=== PATIENT | female | born 1955 | race Caucasian/White ===

== ENCOUNTER 2025-03-26 19:54 | Emergency (ER) | payer MEDICARE ==
[~2025-03-26] VITALS: Ht 149.9 cm; Wt 52.2 kg
--- NOTE | 2025-03-26 20:07 | ERN ---
General Chief Complaint: Abdominal Pain Stated Complaint: ABDOMINAL PAIN Time Seen by MD: 19:56 Source: patient History of Present Illness Initial Comments Patient is a 69-year-old female coming in to be evaluated for epigastric pain. Per patient the pain began earlier today. She also states that she was had this pain in the past. She quantifies the pain at 10/10. Allergies: Coded Allergies: No Known Allergies (Unverified Allergy, Unknown, 03/26/25) Past Medical History Past Medical History: No Pertinent History Past Surgical History: Other Surgical History Other: LOWER BACK SURGERY ROS Dictation CONSTITUTIONAL: No chills, no fever, no weakness, no diaphoresis, no malaise. HEAD/FACE: No signs of trauma. EENT: No eye pain, no blurred vision, no tearing, no double vision, no ear pain, no ear discharge, no nose pain, no nasal congestion, no throat pain, no throat swelling, no mouth pain. RESPIRATORY: No cough, no orthopnea, no SOB, no stridor, no wheezing. CARDIOVASCULAR: No chest pain, no edema, no palpitations, no syncope. GASTROINTESTINAL/ABDOMINAL: abdominal pain, no constipation, no diarrhea, no nausea, no vomiting. GENITOURINARY: No abnormal discharge, no dysuria, no frequent urination, no hematuria. No complaints of pain in the genitals. MUSCULOSKELETAL: No back pain, no gout, no joint pain, no joint swelling, no muscle pain, no muscle stiffness, no neck pain. INTEGUMENTARY: No change in color, no change in hair/nails, no dryness, no lesion, no lumps, no rash. NEUROLOGICAL/PSYCH: No anxiety, not depressed, no emotional problem, no headache, no numbness, no pre-existing deficit, no history of seizures, no tremors, no weakness. HEMATOLOGIC/LYMPHATIC: Not anemic, no history of blood clots, no apparent bleeding, no bruising, glands not swollen. All Systems Negative, Except as Noted. Physical Exam Physical Exam Dictation VITAL SIGNS: Reviewed. GENERAL APPEARANCE: Alert, oriented x3, no acute distress, obese. HEAD AND FACE: Non-traumatic. EYES: PERRL, pink conjunctivas, eyelid no trauma, anterior chamber clear. EARS: Pinnas intact and no signs of trauma or erythema. Ear canals clear and no discharge. TMs no erythema. NOSE: No discharge, no bleeding. OROPHARYNX: Mouth normal, teeth no caries, tongue pink. Pharynx clear, no erythema. Tonsils no exudates, no abscesses noted. Mucous membrane moist. NECK: Supple, non-tender, no thyromegaly, no masses, no JVD, no bruits. BREAST: Deferred. CHEST: No tenderness, no crepitus, no paradoxical movement, no retractions. LUNGS: Clear, well-ventilated, symmetric, no rales, no wheezing, no rhonchi, no stridor, good breath sounds bilaterally. HEART: Regular rate, regular rhythm, no murmur, no gallops. VASCULAR: No peripheral edema. ABDOMEN: Soft, positive bowel sounds, nondistended, no guarding, nontender, no rebound, no masses no hepatomegaly, no splenomegaly, no Mireles's sign, no hernias. RECTAL: Deferred. GENITAL: Deferred. NEUROLOGICAL: Normal speech, gross motor function intact, gross sensory function intact. MUSCULOSKELETAL: Neck nontender, full range of motion, back nontender, full range of motion. EXTREMITIES: Nontender, full range of motion. SKIN: Color pink, dry, no turgor, no rash, no lacerations, no abrasions, no contusions. LYMPHATICS: Deferred. Results Laboratory and Microbiology Lab and Micro Result Laboratory Tests Test 03/26/25 20:12 03/26/25 20:22 White Blood Count 9.5 K/uL (4.8-10.8) Red Blood Count 4.22 MIL/uL (4.00-5.50) Hemoglobin 13.1 g/dL (12.0-16.0) Hematocrit 38.8 % (36-48) Mean Corpuscular Volume 91.9 fL (79-99) Mean Corpuscular Hemoglobin 31.0 pg (27.0-33.0) Mean Corpuscular Hemoglobin Concent 33.8 g/dL (32.0-36.0) Red Cell Distribution Width 13.6 % (11.0-15.5) Platelet Count 194 K/uL (130-400) Mean Platelet Volume 10.4 fL (7.5-10.5) Immature Granulocyte % (Auto) 0.2 % (0-1) Neutrophils (%) (Auto) 80.5 % (40.0-77.0) H Lymphocytes (%) (Auto) 15.2 % (21.0-51.0) L Monocytes (%) (Auto) 3.5 % (3.0-13.0) Eosinophils (%) (Auto) 0.2 % (0.0-8.0) Basophils (%) (Auto) 0.4 % (0.0-5.0) Neutrophils # (Auto) 7.7 K/uL (1.8-7.7) Lymphocytes # (Auto) 1.5 K/uL (1.0-4.8) Monocytes # (Auto) 0.3 K/uL (0.1-1.0) Eosinophils # (Auto) 0.02 K/uL (0.00-0.70) Basophils # (Auto) 0.04 K/uL (0.00-0.20) Absolute Immature Granulocyte (auto 0.02 K/uL (0-1) Nucleated Red Blood Cells 0.0 % (0.0-0.19) Sodium Level 140 mmol/L (136-145) Potassium Level 4.0 mmol/L (3.5-5.1) Chloride Level 102 mmol/L (101-111) Carbon Dioxide Level 26 mmol/L (21-32) Blood Urea Nitrogen 19 mg/dL (7-18) H Creatinine 0.7 mg/dL (0.5-1.0) Glomerular Filtration Rate Calc 92 mL/min (>90) Random Glucose 117 mg/dL (70-105) H Total Calcium 8.8 mg/dL (8.5-10.1) Total Bilirubin 0.4 mg/dL (0.2-1.0) Aspartate Amino Transf (AST/SGOT) 23 U/L (10-37) Alanine Aminotransferase (ALT/SGPT) 28 U/L (12-78) Alkaline Phosphatase 70 U/L (50-136) Total Creatine Kinase 62 U/L (21-232) Troponin I High Sensitivity 6 ng/L (4-50) Total Protein 6.8 g/dL (6.0-8.3) Albumin 3.6 g/dL (3.5-5.0) Lipase 24 U/L (16-77) Urine Color YELLOW (YELLOW) Urine Appearance CLOUDY (CLEAR) H Urine pH 6.0 (5.0-8.0) Urine Specific Dale 1.040 (1.001-1.031) Urine Protein 70 mg/dL (NEGATIVE) H Urine Glucose (UA) NEGATIVE mg/dL (NEGATIVE) Urine Ketones 150 mg/dL (NEGATIVE) H Urine Occult Blood MODERATE (NEGATIVE) H Urine Nitrate NEGATIVE (NEGATIVE) Urine Bilirubin 0.5 mg/dL (NEGATIVE) H Urine Urobilinogen 4.0 mg/dL (0.2-1.0) H Urine Leukocyte Esterase NEGATIVE Latisha/uL Urine RBC 26-50 /HPF (0-1) H Urine WBC 2-5 /HPF (0-1) H Urine Squamous Epithelial Cells FEW /HPF (0-2) Urine Bacteria None /HPF (None Seen) Labs Reviewed?: Yes EKG/XRAY/US/CT/MRI EKG Comment 02/2025 time 8:08 p.m. Ventricular rate [address] wave elevation or depression MDM MDM: Differential diagnosis: Gastritis, GERD, H pylori, NSTEMI, STEMI Rationale: Tests considered and ordered secondary to shared decision making include: Previous outside records reviewed: Old ER visits. Risk of complication and/or morbidity or mortality of patient management: None Medications-Per medication reconciliation Patient is a 69-year-old female coming in to be evaluated for epigastric discomfort. Laboratory workup negative for acute findings. Patient received a GI cocktail as well as IV Protonix states he feels much better. She also disclose that she has been battling with the discomfort for some time. She was pending an endoscopy but refuses the has a performed. I educated her on reason to have it done she will have it done she states ED Course Orders Procedure Category Date Status Time Cbc With Differential LAB 03/26/25 Complete 20:02 Comprehensive LAB 03/26/25 Complete Metabolic Panel 20:02 Troponin I High LAB 03/26/25 Complete Sensitivity 20:02 Urinalysis Profile LAB 03/26/25 Complete 20:02 Us Abdominal Ruq\\Ltd US 03/26/25 Taken 20:02 12 Lead Ekg Tracing- EKG 03/26/25 Complete Technical 20:02 Lactated Ringers PHA 03/26/25 Complete 1000ml (Lactated 20:30 Ondansetron 4mg Inj PHA 03/26/25 Complete (Zofran 4mg Inj) 20:30 Pantoprazole 40mg Inj PHA 03/26/25 Complete (Protonix 40mg Inj 20:30 Creatine Kinase, Total LAB 03/26/25 Complete 20:02 Lipase LAB 03/26/25 Complete 20:02 Lidocaine Hcl 2% PHA 03/26/25 Complete Viscous (Lidocaine Hcl 21:30 Mag/Alum/Simeth 30ml PHA 03/26/25 Complete (Maalox Plus 30ml) 21:30 Dicyclomine Hcl PHA 03/26/25 Complete (Bentyl 10mg/5ml 21:30 Current Medications Medications (Trade) Dose Ordered Sig/Silvia Route PRN Reason Start Time Stop Time Status Last Admin Dose Admin Al Hydroxide/Mg Hydroxide (MAALox PLUS 30ML) 30 ml ONCE ONCE PO 03/26/25 21:30 03/26/25 21:31 DC 03/26/25 21:27 Dicyclomine HCl (Bentyl 10mg/5ml Syrup) 10 mg ONCE ONCE PO 03/26/25 21:30 03/26/25 21:31 DC 03/26/25 21:27 Lactated Ringer's 1,000 ml @ 0 mls/hr ONCE ONCE IV 03/26/25 20:30 03/26/25 20:31 DC 03/26/25 20:26 Lidocaine HCl (Lidocaine HCl 2% Viscous) 10 ml ONCE ONCE PO 03/26/25 21:30 03/26/25 21:31 DC 03/26/25 21:27 Ondansetron HCl (zoFRAN 4MG INJ) 4 mg ONCE ONCE IVP 03/26/25 20:30 03/26/25 20:31 DC 03/26/25 20:26 Pantoprazole Sodium (PROTonix 40MG INJ) 40 mg ONCE ONCE IVP 03/26/25 20:30 03/26/25 20:31 DC 03/26/25 20:26 Vital Signs Date Time Temp Pulse Resp B/P (MAP) Pulse Ox O2 Delivery O2 Flow Rate FiO2 03/26/25 20:16 98.2 87 16 146/61 98 Room Air* 0 21 03/26/25 19:55 98.8 68 16 155/62 97 Room Air 0 DX & DISP Disposition: Discharge Departure Impression: Primary Impression: Gastritis Additional Impression: Peptic ulcer disease Condition: Stable Scripts Pantoprazole Sodium (Protonix) 40 Mg Ectab 1 TAB PO DAILY for 30 Days, #30 TAB 0 Refills Prov: AMBIKA BOYLE MD 03/26/25 Additional Instructions: You have been reviewed in the emergency department at [facility] after presenting with chest pain. After considering your history, your risk factors, your EKG and your blood test troponins, have been found to be at very low risk less than (1 in 100) of having a major adverse cardiac event (like heart attack) in the near future. In the " low risk" group, the risks of doing further tests and treatment as the inpatient outweighs the benefits. In many patients in the low risk group for the test of any sort or unnecessary, however he should discuss this further with his general practitioner who will understand the medical and personal backgrounds better. Because we have never declared you" no risk" we would suggest. 1 returning for medical review if you have further episodes of chest pain/arm pain or other concerning symptoms like dizziness, collapse, palpitations or shortness of breath. 2. Following up with your local doctor who will consider the need for further testing and will also ensure that any modifiable risk factors you may have for heart disease are optimally managed. Patient will be discharged in stable condition at the moment discharge patient states , no chest pain Referrals: SHANNAN HAMPTON MD Time of Disposition: 22:08 AMBIKA BOYLE MD Mar 26, 2025 20:06
--- NOTE | 2025-03-26 20:11 | EKG ---
[facility] Test Date: 2025-03-26 Test Time: 20:08:24 Pat Name: PJ JUNG Department: ED Room: Gender: F Legal Associate: [id number] : 1955 Requested By: AMBIKA BOYLE Order Number: [id number] Reading MD: Carlito Wong Measurements Intervals [place] Rate: 77 P: 58 SC: 173 QRS: 63 QRSD: 73 T: 51 QT: 368 QTc: 418 Interpretive Statements Sinus rhythm Probable left atrial enlargement No previous ECG available for comparison Electronically Signed On 03-27-2025 21:38:35 CDT by Carlito Wong Please click the below link to view image of tracing.
[2025-03-26 20:23] LABS: BASOPHILS # (AUTO) 0.04 K/uL (0.00-0.20); BASOPHILS % (AUTO) 0.4 % (0.0-5.0); EOSINOPHILS # (AUTO) 0.02 K/uL (0.00-0.70); EOSINOPHILS % (AUTO) 0.2 % (0.0-8.0); HEMATOCRIT 38.8 % (36-48); IMMATURE GRANULOCYTE ABSOLUTE 0.02 K/uL (0-1); LYMPHOCYTES # (AUTO) 1.5 K/uL (1.0-4.8); LYMPHOCYTES % (AUTO) 15.2 % (21.0-51.0); MEAN CORPUSCULAR HGB CONC 33.8 g/dL (32.0-36.0); MEAN CORPUSCULAR VOLUME 91.9 fL (79-99); MONOCYTES # (AUTO) 0.3 K/uL (0.1-1.0); MONOCYTES % (AUTO) 3.5 % (3.0-13.0); NEUTROPHILS # (AUTO) 7.7 K/uL (1.8-7.7); NEUTROPHILS % (AUTO) 80.5 % (40.0-77.0); PLATELET COUNT (AUTO) 194 K/uL (130-400); RED BLOOD CELL COUNT(AUTO) 4.22 MIL/uL (4.00-5.50); RED CELL DISTRIBUTION WIDTH 13.6 % (11.0-15.5); WHITE BLOOD COUNT (AUTO) 9.5 K/uL (4.8-10.8)
[2025-03-26] MEDS: ondanSETRON 4MG INJ IVP ONE (20:26)
[2025-03-26] MEDS: PANTOPrazole 40 MG/VIAL IVP ONE (20:26)
[2025-03-26] MEDS: LACTATED RINGERS 1000ML 1,000 ML IV ONE (20:26)
[2025-03-26 20:31] LABS: CREATININE 0.7 mg/dL (0.5-1.0)
[2025-03-26 20:35] LABS: APPEARANCE,URINE CLOUDY (CLEAR); BILIRUBIN,URINE 0.5 mg/dL (NEGATIVE); COLOR,URINE YELLOW (YELLOW); GLUCOSE, URINE (UA) NEGATIVE (NEGATIVE); KETONES,URINE 150 mg/dL (NEGATIVE); LEUKOCYTE ESTERASE ,URINE NEGATIVE Leu/uL (NEGATIVE); NITRATE,URINE NEGATIVE (NEGATIVE); OCCULT BLOOD,URINE MODERATE (NEGATIVE); PROTEIN,URINE 70 mg/dL (NEGATIVE)
[2025-03-26 20:35] LABS: ALBUMIN 3.6 g/dL (3.5-5.0); BILIRUBIN,TOTAL 0.4 mg/dL (0.2-1.0); TOTAL PROTEIN, SERUM 6.8 g/dL (6.0-8.3)
[2025-03-26 20:38] LABS: ADD UA MICROSCOPIC YES
[2025-03-26 20:40] LABS: MUCUS,URINE FEW LPF (None Seen); RBC,URINE 26-50 /HPF (0-1); SQUAMOUS EPITHELIAL CELL,UR FEW /HPF (0-2)
[2025-03-26] MEDS: DICYCLOMINE HCL 10 MG/5 ML ML PO ONE (21:27)
[2025-03-26] MEDS: LIDOCAINE HCL 2% VISCOUS 15 ML UDCUP PO ONE (21:27)
[2025-03-26] MEDS: MAG/ALUM/SIMETH 30 ML UDCUP PO ONE (21:27)
[2025-03-26] MEDS ORDERED: PANT40TA55 PO (22:09)
--- NOTE | 2025-03-26 22:10 | HMCIMG ---
EXAM: US Abdomen, Right Upper Quadrant. CLINICAL HISTORY: Adominal Pain TECHNIQUE: Right upper quadrant sonography performed with image documentation. COMPARISON: None provided. FINDINGS: LIVER: Within normal limits in size and echogenicity. No mass. Hepatopetal flow within the portal vein measures 17 cm/s. GALLBLADDER: The gallbladder appears normal. No gallbladder wall thickening seen. No gallstones are evident. Gallbladder wall measures 2 mm. COMMON BILE DUCT: Within normal limits in size. The common bile duct measures 4 mm PANCREAS: The visualized pancreas appears within normal limits. The distal pancreas is obscured by bowel gas. RIGHT KIDNEY: Unremarkable. Normal renal contours. No renal mass or calculus. No hydronephrosis. The right kidney measures 6.9 x 2.8 x 3.5 cm. IMPRESSION: Normal appearance of the gallbladder. /Alyssa
[2025-03-26 22:46] VITALS: BP 126/59; PULSE 73; RESP 16; TEMP 98.3; O2SAT 98
== END 2025-03-26 22:54 | disposition home or self-care (01) ==
LOC: EDH 19:54
DX: K29.70 Gastritis, unspecified, without bleeding (principal); K27.9 Peptic ulcer, site unspecified, unspecified as acute or chronic, without hemorrhage or perforation
CPT/HCPCS: 99285; 96374; 76705; 96375; 82550; 84484; 80053; 83690; 85025; 81001; 36415; 93005; J7120; J2405; J2470